=== PATIENT | female | born 1960 | race Caucasian/White ===

== ENCOUNTER 2018-10-23 14:50 | Inpatient (IN) | payer OTHER ==
[2018-10-23] MEDS ORDERED: NS 1,000 ML IV ONE ×2 (15:09→16:09)
[2018-10-23] MEDS ORDERED: KETOROLAC 30 MG/1 ML SDV IVP ONE (15:33)
--- NOTE | 2018-10-23 16:14 | EDPHY ---
H & P Stated Complaint: garcia, dizzy, balance issues Time Seen by Provider: 10/23/18 15:56 HPI/ROS: CHIEF COMPLAINT: Unsteady gait, listing to right, vomiting HISTORY OF PRESENT ILLNESS: 58-year-old female with multiple sclerosis presents with an unsteady gait and vomiting. This morning she awoke and while she was sitting in bed, she fell onto the bed to the right. She crawled to the bathroom and urinated. She then crawled back to bed and went back to sleep. She awoke at 1030 and continued to feel a strong pull to the right and was unable to walk. Associated with repeated vomiting, diffuse myalgias and subjective fever. No cough or URI symptoms. Did not receive a flu vaccination this year. REVIEW OF SYSTEMS: complete 10 point ROS reviewed and is negative except for the noted elements in the HPI - Personal History Current Tetanus/Diphtheria Vaccine: Yes Tetanus Vaccine Date: 2013 - Medical/Surgical History Hx Asthma: No Hx Chronic Respiratory Disease: No Hx Diabetes: No Hx Cardiac Disease: No Hx Renal Disease: No Hx Cirrhosis: No Hx Alcoholism: No Hx HIV/AIDS: No Hx Splenectomy or Spleen Trauma: No Other PMH: MS-1997-Dr Carbone ([place]), depression, - Social History Smoking Status: Light smoker Alcohol Use: Sober Additional Social History: Lives near [place] with brother, who is her caregiver - Physical Exam Exam: General Appearance: Alert, pleasant Eyes: Pupils equal and round, no conjunctival pallor ENT, Mouth: Mucous membranes dry Neck: Normal inspection Respiratory: Lungs are clear to auscultation Cardiovascular: Regular rate and rhythm Gastrointestinal: Abdomen is soft and nontender Neurological: Alert and oriented, able to hold arms and legs up against gravity for 5 sec, gait not assessed Skin: Warm and dry Extremities: Normal inspection Psychiatric: Mood and affect normal Constitutional: Initial Vital Signs Temperature (C) 36.6 C 10/23/18 15:01 Heart Rate 81 10/23/18 15:01 Respiratory Rate 16 10/23/18 15:01 Blood Pressure 149/73 H 10/23/18 15:01 O2 Sat (%) 93 10/23/18 15:01 O2 Delivery Mode Room Air Allergies/Adverse Reactions: No Known Allergies Allergy (Unverified 03/04/16 12:42) Home Medications: Medication Instructions Recorded Cholecalciferol Vit D3 [Vitamin D3 1,000 units PO DAILY 10/23/18 (*)] Citalopram Hydrobromide 40 mg PO DAILY 10/23/18 [Citalopram HBr] Gabapentin [Neurontin 100 MG (*)] 200 mg PO DAILY 10/23/18 Tamsulosin HCl [Flomax 0.4 MG (*)] 0.4 mg PO DAILY PRN 10/23/18 Medical Decision Making - Diagnostics Imaging Results: Imaging Impressions Chest X-Ray 10/23/18 16:09 Impression: 1. Suspect airways disease with superimposed low-grade congestive heart failure. 2. See above report for additional findings. Head CT 10/23/18 16:10 Impression: 1. Elderly brain with atrophy and probable white matter small vessel disease. 2. Nothing acute is identified. Results called and discussed with RENATA ELDRIDGE M.D. on 10/23/2018 at 19:00. Head CTA 10/23/18 16:10 Impression: 1. Negative CT angiography of the neck with no arterial occlusive disease identified. 2. Probable normal variant of the right vertebral artery versus unlikely possibility of a focal dissection; this can be assessed at the patient's pending MRI of the brain. CT Angiography of the Head With Attention to the [place] Reason for examination: Neurologic changes in a 58-year-old female with a history of multiple sclerosis. Technique: A spiral acquisition was performed from the base of the brain to the vertex during rapid intravenous administration of 85 mL of Isovue-370. This contrast volume was utilized for evaluation of the neck and head. Axial images are obtained at 0.6 mm thickness and the examination is reviewed on the workstation in multiple window and level settings. Sagittal and coronal reformats are performed and three-dimensional reformations are performed by the radiologist on the workstation. Dose reduction techniques were utilized. Findings: There is excellent arterial opacification. The great vessels at the base of the brain are normal in appearance. The anterior and middle cerebral arteries appear normal. The [place] is intact with both anterior and posterior communicating arteries identified. The basilar artery as well as posterior cerebral arteries are normal. 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 No hemorrhages are seen and no vascular malformations are identified. No areas of abnormal perfusion are identified and there are no findings to suggest cortical ischemia. Impression: Normal CT angiography of the head with attention to the great vessels of the [place]. Results called and discussed with RENATA ELDRIDGE M.D. on 10/23/2018 at 20:45. Note: All stenoses are calculated using NASCET Criteria. Neck CTA 10/23/18 16:10 Impression: 1. Negative CT angiography of the neck with no arterial occlusive disease identified. 2. Probable normal variant of the right vertebral artery versus unlikely possibility of a focal dissection; this can be assessed at the patient's pending MRI of the brain. CT Angiography of the Head With Attention to the [place] Reason for examination: Neurologic changes in a 58-year-old female with a history of multiple sclerosis. Technique: A spiral acquisition was performed from the base of the brain to the vertex during rapid intravenous administration of 85 mL of Isovue-370. This contrast volume was utilized for evaluation of the neck and head. Axial images are obtained at 0.6 mm thickness and the examination is reviewed on the workstation in multiple window and level settings. Sagittal and coronal reformats are performed and three-dimensional reformations are performed by the radiologist on the workstation. Dose reduction techniques were utilized. Findings: There is excellent arterial opacification. The great vessels at the base of the brain are normal in appearance. The anterior and middle cerebral arteries appear normal. The [place] is intact with both anterior and posterior communicating arteries identified. The basilar artery as well as posterior cerebral arteries are normal. 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 No hemorrhages are seen and no vascular malformations are identified. No areas of abnormal perfusion are identified and there are no findings to suggest cortical ischemia. Impression: Normal CT angiography of the head with attention to the great vessels of the [place]. Results called and discussed with RENATA ELDRIDGE M.D. on 10/23/2018 at 20:45. Note: All stenoses are calculated using NASCET Criteria. Imaging: Discussed imaging studies w/ jewelry sales representative Radiologist ED Course/Re-evaluation: This patient with multiple sclerosis presents with an unsteady gait, vomiting and fever. Clinically, I suspect that she has a febrile illness and in MS exacerbation. However, I cannot completely exclude a CVA, so CT/CTA of the head and neck were obtained and revealed no evidence of CVA. Laboratory studies are unremarkable. Chest x-ray reveals no evidence of pneumonia. Urinalysis is pending. IV normal saline 1 L and Zofran 4 mg IV given. She will need admission for further evaluation of unsteady gait. MRI of the brain with and without contrast ordered. The hospitalist service was consulted for admission. Differential Diagnosis: Differential diagnosis includes does not limited to pneumonia, CVA, urinary tract infection, influenza, electrolyte abnormality, hypoglycemia, vertigo. - Data Points Laboratory Results: Laboratory Results 10/23/18 14:56 10/23/18 14:56 10/23/18 10/23/18 14:56 14:56 WBC 8.82 10^3/uL 10^3/uL (3.80-9.50) RBC 5.68 10^6/uL H 10^6/uL (4.18-5.33) Hgb 16.8 g/dL H g/dL (12.6-16.3) Hct 50.5 % H % (38.0-47.0) MCV 88.9 fL fL (81.5-99.8) MCH 29.6 pg pg (27.9-34.1) MCHC 33.3 g/dL g/dL (32.4-36.7) RDW 12.8 % % (11.5-15.2) Plt Count 276 10^3/uL 10^3/uL (150-400) MPV 8.8 fL fL (8.7-11.7) Neut % (Auto) 84.9 % H % (39.3-74.2) Lymph % (Auto) 11.0 % L % (15.0-45.0) [place] % (Auto) 3.5 % L % (4.5-13.0) Eos % (Auto) 0.0 % L % (0.6-7.6) Baso % (Auto) 0.3 % % (0.3-1.7) Nucleat RBC Rel Count 0.0 % % (0.0-0.2) Absolute Neuts (auto) 7.48 10^3/uL H 10^3/uL (1.70-6.50) Absolute Lymphs (auto) 0.97 10^3/uL L 10^3/uL (1.00-3.00) Absolute Monos (auto) 0.31 10^3/uL 10^3/uL (0.30-0.80) Absolute Eos (auto) 0.00 10^3/uL L 10^3/uL (0.03-0.40) Absolute Basos (auto) 0.03 10^3/uL 10^3/uL (0.02-0.10) Absolute Nucleated RBC 0.00 10^3/uL 10^3/uL (0-0.01) Immature Gran % 0.3 % % (0.0-1.1) Immature Gran # 0.03 10^3/uL 10^3/uL (0.00-0.10) Sodium 138 mEq/L mEq/L (135-145) Potassium 4.3 mEq/L mEq/L (3.5-5.2) Chloride 108 mEq/L mEq/L (97-110) Carbon Dioxide 22 mEq/l mEq/l (22-31) Anion Gap 8 mEq/L mEq/L (6-14) BUN 15 mg/dL mg/dL (7-23) Creatinine 0.6 mg/dL mg/dL (0.6-1.0) Estimated GFR > 60 Glucose 157 mg/dL H mg/dL (70-100) Calcium 9.8 mg/dL mg/dL (8.5-10.4) Microbiology Results: MICROBIOLOGY 10/23/18 15:40 Nasal, Sinus - Swab Respiratory Panel (PCR) - Final No Organism Detected By Pcr Medications Given: Acetaminophen (Tylenol) 650 mg PO Q4HRS PRN PRN Reason: Pain, Mild/Fever, Can Take PO Stop: 04/21/19 18:16 Last Admin: 10/23/18 19:58 Dose: 650 mg Sodium Chloride (Ns) 1,000 mls @ 75 mls/hr IV CONT ROGELIO Stop: 04/21/19 18:29 Last Admin: 10/23/18 21:15 Dose: 1,000 mls Ondansetron HCl (Zofran Odt) 4 mg PO Q4HRS PRN PRN Reason: Nausea/Vomiting, Use 1st Stop: 04/21/19 18:16 Last Admin: 10/23/18 20:04 Dose: 4 mg Discontinued Medications Sodium Chloride (Ns) 1,000 mls @ 0 mls/hr IV ONCE ONE; Wide Open PRN Reason: Protocol Stop: 10/23/18 15:10 Last Admin: 10/23/18 15:14 Dose: 1,000 mls Sodium Chloride (Ns) 1,000 mls @ 0 mls/hr IV ONCE ONE; Wide Open PRN Reason: Protocol Stop: 10/23/18 16:10 Last Admin: 10/23/18 16:54 Dose: 1,000 mls Ketorolac Tromethamine (Toradol) 30 mg IVP EDNOW ONE Stop: 10/23/18 15:34 Last Admin: 10/23/18 15:36 Dose: 30 mg Departure - Departure Disposition: [facility] Acute Clinical Impression: Unsteady gait Vomiting Qualifiers: Vomiting type: unspecified Vomiting Intractability: unspecified Nausea presence : with nausea Qualified Code(s): R11.2 - Nausea with vomiting, unspecified Condition: Fair
[2018-10-23 16:29] LABS: PLATELET COUNT 276 10^3/uL (150-400)
[2018-10-23] MEDS ORDERED: IOPAMIDOL (ISOVUE 370) 100 ML BTL IV ONE (16:42)
[2018-10-23] MEDS ORDERED: ONDANSETRON 4 MG/2 ML VIAL IVP PRN (18:17)
[2018-10-23] MEDS ORDERED: NS 1,000 ML IV SCH (18:30)
--- NOTE | 2018-10-23 19:09 | GHP ---
[f rep st] HISTORY AND PHYSICAL DATE OF ADMISSION: 10/23/2018 CHIEF COMPLAINT: Difficulty walking. HISTORY OF PRESENT ILLNESS: This is a 58-year-old female who has a history of multiple sclerosis. S he has been on biannual Rituxan recently. She woke up today, was sitting up in her bed, and fell ove r to her right side. She normally walks with a cane with some difficulty. However, she felt as thou gh she were unable to walk. She thus crawled to the bathroom and then crawled back to her bed. She notes that throughout the day she had an episode where she felt hot, thought that she might have had a fever. She also notes worsening right leg weakness as well as decreased sensation in her left arm. Her face also feels a little bit numb. She had 1 episode of emesis this afternoon. She is coughin g when I am seeing her, though she attributes this to "water going down the wrong pipe." She has had no sick contacts. She has had no diarrhea. She has no dysuria or new, or a change in her urinary sy mptoms. PAST MEDICAL/SURGICAL HISTORY: 1. Multiple sclerosis. 2. Depression. 3. Kidney stone, status post lithotripsy. MEDICATIONS: Please see medication reconciliation. ALLERGIES: No known drug allergies. SOCIAL HISTORY: She occasionally smokes marijuana. She does not drink any alcohol. FAMILY HISTORY: No multiple sclerosis. Her brother has ulcerative colitis. REVIEW OF SYSTEMS: A 10-point review of systems is conducted and is negative except per HPI. PHYSICAL EXAM: VITAL SIGNS: Blood pressure 135/85, heart rate 85, respiration rate 16, saturating 9 8% on room air, temperature 37. GENERAL: The patient is a pleasant female who is resting comfortabl y. No acute distress. HEENT: Shows her to be normocephalic, atraumatic. CARDIOVASCULAR: Shows re gular rate and rhythm. No murmurs, rubs, or gallops. PULMONARY: Shows lungs clear to auscultation bilaterally. ABDOMEN: Soft, nontender, nondistended. SKIN: Shows no rash. : No Carbone. NEUROL OGIC: Shows her to be alert and oriented x3. Her left pupil is slightly larger than the right pupil , it is about 4 mm, right is 3 mm. They are both reactive. Otherwise, cranial nerves are intact. H er motor is 5/5 in her upper extremities. She has 3/5 in the right lower extremity, 4/5 in her left lower extremity. Sensation is diminished subjectively to light touch in her left arm. PSYCHIATRIC: Shows normal mood and affect. LABS: Hemoglobin 16.8. Basic metabolic panel is unremarkable. DATA: 1. Discussed with Dr. Lovell. We will admit to med/surg. 2. I personally viewed and interpreted her chest x-ray. This shows possible bronchitis. IMPRESSION AND PLAN: 1. Change in her neurologic status. She does have a history of multiple sclerosis, could attribute changes to progression of her multiple sclerosis or an underlying metabolic derangement like an infec tion. Infectious workup is currently in progress. She is getting a CT non con head and CT angiogram of her head and neck, though I do not suspect a stroke at this point. I have gone ahead and ordered an MRI to further characterize her lesions. We will complete an infectious workup with respiratory PCR, GI pathogen panel, urinalysis. I will consult Neurology as well. 2. Multiple sclerosis: She is due for her Rituxan injection in a couple of months. Neurology will see her while she is here. 3. Difficulty walking: PT/OT has been ordered. 4. Venous thromboembolism risk is moderate. I will give her Lovenox. /[id number]/MODL
[2018-10-23] MEDS: ACETAMINOPHEN 325 MG TAB PO PRN (19:58)
[2018-10-23] MEDS: ONDANSETRON DISINTEGRATING 4 MG TAB PO PRN (20:04)
[2018-10-23] MEDS ORDERED: TAMSULOSIN HCL 0.4 MG CAP PO PRN (23:02)
[2018-10-24] MEDS: ACETAMINOPHEN 325 MG TAB PO PRN (00:52)
[2018-10-24] MEDS: ONDANSETRON DISINTEGRATING 4 MG TAB PO PRN ×2 (00:55→08:58)
[2018-10-24 05:16] LABS: PLATELET COUNT 236 10^3/uL (150-400)
[2018-10-24] MEDS: GABAPENTIN 100 MG CAP PO SCH ×2 (08:57→22:01)
[2018-10-24] MEDS: ENOXAPARIN 40 MG/0.4 ML SYR SC SCH (08:57)
[2018-10-24] MEDS: CHOLECALCIFEROL VIT D3 1,000 UNITS TAB PO SCH (08:57)
[2018-10-24] MEDS: CITALOPRAM 20 MG TAB PO SCH (08:58)
--- NOTE | 2018-10-24 10:39 | HOSPPROG ---
Hospitalist Progress Note Assessment/Plan: Alesha is a 58-year-old female who has a history of multiple sclerosis who is on biannual Rituxan. When she woke and was sitting in her bed, she fell over to her r side. Uses a cane to ambulate. She felt she couldn't walk. Also, felt she may of had a fever. First encounter, chart reviewed. *neurologic changes -reviewed her CT imaging, nothing acute seen -MRI pending -evaluation of any infectious etiology - Resp PCR is negative, will check a ua *MS -on Rituxan *weakness -PT and OT -she lives w her brother, Trip, who is very supportive of her *plan: will await MRI imaging. See how well she does with PT and OT. Subjective: Alesha has c/o pain to her right cheek area. Objective: Vital Signs Temp Pulse Resp BP Pulse Ox 36.9 C 77 91 H 105/54 L 90 L 10/24/18 08:47 10/24/18 08:47 10/24/18 08:47 10/24/18 08:47 10/24/18 04:58 Laboratory Results 10/24/18 04:52 10/24/18 04:37 10/23/18 10/24/18 10/25/18 04:59 05:59 05:59 Intake Total 643 Output Total Balance 643 - Physical Exam Constitutional: no apparent distress, appears nourished, not in pain Eyes: PERRL Ears, Nose, Mouth, Throat: hearing normal Cardiovascular: regular rate and rhythym Respiratory: no respiratory distress Gastrointestinal: normoactive bowel sounds Skin: warm Musculoskeletal: generalized weakness Neurologic: AAOx3, sensation intact bilaterally, other (left foot slightly weaker w pull up), No facial droop Psychiatric: interacting appropriately ICD10 Worksheet Patient Problems: Problems Problem Status Onset Unsteady gait Acute Vomiting Acute
[2018-10-24] MEDS ORDERED: IBUPROFEN 200 MG TAB PO PRN (11:46)
[2018-10-24] MEDS ORDERED: GADOBUTROL 10 ML VIAL IVP ONE (12:07)
--- NOTE | 2018-10-24 13:17 | NEUROPROG ---
Assessment: [id number] - Neurology Consult: - CC: Dr. Cottrell (Hospitalist) consulted neurology for difficulty walking. Results placed in EMR for his review. - HPI: 10/24/18: Pt with multiple sclerosis on rituxan bi-annually presented to [facility] ER on 10/23/18 complaining of worsening right leg weakness and decreased sensation in left arm. She walks with a cane at baseline from multiple sclerosis but feels her walking is worse than her baseline. She felt she may have had a fever on 10/23/[address] and CTA head/neck were unremarkable in ER ( CTA neck did show possible vert dissection but the rads report felt a benign variant was more likely). Pt admitted. I initially saw on 10/24/18. Neurologic exam showed increased tone in legs and possible minimal weakness in both legs (pt had a hard time giving full effort). Plan is to obtain brain MRI wwo and UA. If brain MRI wwo shows active demyelinating lesions then recommend pt get IV Solumederol 1,000 mg qd x 3 days. - PMHx: multiple sclerosis, depression, renal stones - Home Meds: - SHx: no alcohol FHx: ulcerative colitis - ROS: Pt denied acute fever, total vision loss, active severe chest pain, respiratory failure, total body severe rash, total bowel/bladder incontinence, psychosis, active seizures, or active bleeding - O: VS reviewed General: Alert Eyes: Fundoscopic exam not able to visualize optic disks CV: Heart RRR, no murmur, no carotid bruit Lungs: Clear to auscultation bilaterally, no rhonchi or rales Neuro: - Mental: . Oriented x person/place/date . concentration appears normal . speech fluency/comprehension normal . memory appears normal . fund of knowledge appear intact - Cranial Nerves: . II: PERRL, VFFTC . III/IV/: EOMI, no nystagmus, normal smooth pursuits, no Ptosis . V: facial sensation intact to LT . VII: face symmetric to eye closure and smile . VIII: hearing intact to conversation . IX/X: uvula raises symmetrically . XI: SCM 5/5 B/L strength . XII: tongue protrudes midline w/nl strength - Motor: . Tone: increased in legs (unclear if pt was trying to relax her legs or not ) . Strength: no pronator drift, strength 5/5 throughout but possible slight weakness in both legs (pt had problems giving full effort) - Reflexes: B/L bic 2/4 - Sensory: all 4 extremity intact to light touch - Coord: ARPAN wnl - Gait: deferred - Labs: 10/23/18- Chem Gluc 157H 10/24/18- CBC CBC wnl - Rads: 10/23/18- Head CT wo: no acute changes noted (I personally visualized the images on 10/24/18) - 10/23/18- Head/neck CTA: Negative CT angiography of the neck with no arterial occlusive disease identified. Probable normal variant of the right vertebral artery versus unlikely possibility of a focal dissection; this can be assessed at the patient's pending MRI of the brain. Normal CT angiography of the head with attention to the great vessels of the [place] - Assessment: 1. Multiple Sclerosis - 2. Sense of generalized weakness concerning for MS flair or pseudoexacerbation from underlying infection - Plan: - Brain MRI wwo (if active demyelinating lesions noted then recommend IV Solumederol 1,000 mg qd x 3 days) - Labs: UA (pending) - PT/OT to determine any rehab needs - F/U with her neurology provider at [place] after hospital discharge Objective: Vital Signs Temp Pulse Resp BP Pulse Ox 37.0 C 78 14 116/69 93 10/24/18 11:57 10/24/18 11:57 10/24/18 11:57 10/24/18 11:57 10/24/18 11:57 Laboratory Results 10/24/18 04:52 10/24/18 04:37 10/23/18 10/24/18 10/25/18 04:59 05:59 05:59 Intake Total 1043 Output Total 100 Balance 943 Allergies/Adverse Reactions: No Known Allergies Allergy (Unverified 03/04/16 12:42)
[2018-10-24] MEDS ORDERED: ASPIRIN 325 MG TAB PO ONE (15:25)
--- NOTE | 2018-10-24 16:50 | PDMN ---
Medical Necessity [place] [facility] [place], 2 days: 58 yo presents w/ change in neuro status - fall, inability to walk - in setting of MS on Rituxan. Initially OBS for workup but neurology consulted, brain MRI ordered, reveals stroke (distal r vertebral artery thrombosis, associated infarcts involving r cerebellum). Change to IP status 10/24/18@1611 per [employer] order.
--- NOTE | 2018-10-24 17:14 | NEUROPROG ---
Assessment: [id number] - Neurology Consult: - CC: Dr. Cottrell (Hospitalist) consulted neurology for difficulty walking. Results placed in EMR for his review. - HPI: 10/24/18: Pt with multiple sclerosis on rituxan bi-annually presented to [facility] ER on 10/23/18 complaining of worsening right leg weakness and decreased sensation in left arm. She walks with a cane at baseline from multiple sclerosis but feels her walking is worse than her baseline. She felt she may have had a fever on 10/23/[address] and CTA head/neck were unremarkable in ER ( CTA neck did show possible vert dissection but the rads report felt a benign variant was more likely). Pt admitted. I initially saw on 10/24/18. Neurologic exam showed increased tone in legs and possible minimal weakness in both legs (pt had a hard time giving full effort). Brain MRI wwo showed superimposed on the patient's MS is acute distal right vertebral artery thrombosis and associated small infarcts involving the right inferior cerebellum , right lateral medulla and right frontal parietal cortex. Therefore, it appears an acute stroke possibly from a proximal source has caused embolic shower to right vert (thrombus) and to the anterior right sided circulation suggesting possible cardiac source. Recommend beginning aspirin 325 mg qd, TTE , telemetry, and considering outpatient prolonged cardiac monitoring with [facility] if no afib found. - PMHx: multiple sclerosis, depression, renal stones - SHx: no alcohol FHx: ulcerative colitis - ROS: Pt denied acute fever, total vision loss, active severe chest pain, respiratory failure, total body severe rash, total bowel/bladder incontinence, psychosis, active seizures, or active bleeding - Labs: 10/23/18- Chem Gluc 157H 10/24/18- CBC CBC wnl - Rads: 10/23/18- Head CT wo: no acute changes noted - 10/23/18- Head/neck CTA: Negative CT angiography of the neck with no arterial occlusive disease identified. Probable normal variant of the right vertebral artery versus unlikely possibility of a focal dissection; this can be assessed at the patient's pending MRI of the brain. Normal CT angiography of the head with attention to the great vessels of the [place] - 10/24/18- Brain MRI wwo: Superimposed on the patient's MS is acute distal right vertebral artery thrombosis and associated small infarctions involving the right inferior cerebellum, right lateral medulla and right frontal parietal cortex. This constellation suggests that the patient may have had a shower of emboli involving both the right vertebral artery and right carotid system. On the CTA earlier, there is retrograde filling of the small distal right vertebral artery and relatively decreased contrast enhancement of arteries in the right inferior cerebellum. - Assessment: 1. Multiple Sclerosis: no active demyelination noted on brain MRI - 2. Right cerebellum and ceberal small strokes noted on 10/24/18 brain MRI: Brain MRI wwo showed superimposed on the patient's MS is acute distal right vertebral artery thrombosis and associated small infarcts involving the right inferior cerebellum, right lateral medulla and right frontal parietal cortex. Therefore , it appears an acute stroke possibly from a proximal source has caused embolic shower to right vert (thrombus) and to the anterior right sided circulation suggesting possible cardiac source. Recommend beginning aspirin 325 mg qd, TTE , telemetry, and considering outpatient prolonged cardiac monitoring with [facility] if no afib found. - Plan: - Begin aspirin 325 mg qd - TTE, telemetry (consider outpatient prolonged cardiac monitoring for paroxysmal afib if no stroke source found) - Labs: H1AC, Lipid - Blood pressure < 220/120 x 48 hours then < 140/90 - H1AC < 7.0 - LDL < 70, recommend statin if above that level - PT/OT to determine any rehab needs - F/U with her neurology provider at [facility] after hospital discharge Objective: Vital Signs Temp Pulse Resp BP Pulse Ox 36.8 C 74 14 118/60 91 L 10/24/18 15:30 10/24/18 15:30 10/24/18 15:30 10/24/18 15:30 10/24/18 15:30 Allergies/Adverse Reactions: No Known Allergies Allergy (Unverified 03/04/16 12:42)
[2018-10-24] MEDS: IBUPROFEN 200 MG TAB PO PRN (20:11)
[2018-10-25] MEDS ORDERED: GABAPENTIN 100 MG CAP PO PRN (09:14)
[2018-10-25] MEDS: CHOLECALCIFEROL VIT D3 1,000 UNITS TAB PO SCH (09:15)
[2018-10-25] MEDS: ENOXAPARIN 40 MG/0.4 ML SYR SC SCH (09:17)
[2018-10-25] MEDS: ASPIRIN 325 MG TAB PO SCH (09:17)
[2018-10-25] MEDS: GABAPENTIN 100 MG CAP PO SCH ×2 (09:21→09:23)
[2018-10-25] MEDS: CITALOPRAM 20 MG TAB PO SCH (09:22)
--- NOTE | 2018-10-25 10:26 | NEUROPROG ---
Assessment: 1. Multiple sclerosis 2. Cryptogenic Stroke I reviewed entire hospital data and Dr. Dominguez's consultation note. Agree with Dr. Dominguez. This patient has had an acute cerebral infarction the setting of longstanding multiple sclerosis. She was not taking any anti-platelet therapy when this occurred. CTA head and neck was negative. No atrial fibrillation on telemetry per my knowledge. No history of palpitations. She was a heavy smoker. Agree with aspirin 325 mg daily ,coated. She will need to start statin therapy as LDL is above 70. Disposition per therapies. Outpatient Cardiology consultation at [facility] for prolonged ECG monitoring/echocardiograms for evaluation of cryptogenic stroke . She will follow-up with her neurologist in terms of her multiple sclerosis as well. No further recommendations. We will continue to follow as needed. Please do not hesitate to call if there are any questions or changes in neurologic status with this patient. Subjective: No new symptoms Objective: Vital Signs Temp Pulse Resp BP Pulse Ox 37.0 C 73 13 130/81 H 96 10/25/18 07:41 10/25/18 07:41 10/25/18 07:41 10/25/18 07:41 10/25/18 07:41 10/24/18 10/25/18 10/26/18 05:59 05:59 05:59 Intake Total 500 Output Total 1150 200 Balance -650 -200 Awake alert No aphasia Dysmetria with right [id number]; compared to left 35 total minutes floor time; over 50% counseling and coordination of care. Allergies/Adverse Reactions: No Known Allergies Allergy (Unverified 03/04/16 12:42)
[2018-10-25] MEDS: ATORVASTATIN CALCIUM 10 MG TAB PO SCH (10:40)
--- NOTE | 2018-10-25 11:11 | ECHO ---
[email or web address] [address] [address] Main: [phone] Echocardiography Examination Transthoracic Name: JANUSZ FIGUEROA MR#: [id number] Study Date: 10/25/2018 Study Time: 08:21 AM Date of : 1960 Age: 58 year(s) Height: 175.3 cm (69 in.) Weight: 61.24 kg (135 lb.) BSA: 1.75 m2 Gender: Female Examination: Echo with Agitated Saline Contrast: Image Quality: Adequate Rhythm: Heart Rate: BP: 130 mmHg/81 mmHg Indication: stroke Procedure Staff Referring Physician: Patient Consumer Marketer: Heather Morin [facility] Reading Physician: Justin Ross MD Requesting Provider: Ordering Physician: Evelin Montilla Indication: stroke Measurements Chambers AV/MV Label Value Normal Value Label Value Normal Value IVSd, 2D 1 cm (0.6cm - 1.1cm) AV Opening, MM 1.4 cm LVDd, 2D 3.4 cm (3.9cm - 5.3cm) AV PGmax 3 mmHg LVDs, 2D 2.4 cm (2.1cm - 4cm) AV PGmean 2 mmHg LVEF, 2D 56 % (54% - 74%) AV Vmax, Curve 0.92 m/s LVEF, BP 57 % (55% - 70%) KIMO D (continuity eq. 3.3 cm2 LVEF, MOD2 53 % (55% - 70%) VTI) LVEF, MOD4 60 % (55% - 70%) MV A Vmax 0.57 m/s LVOT PGmean 1 mmHg MV DT 169 ms LVOT Vmean 0.56 m/s MV E' lateral 0.12 m/s LVOTd 2 cm (1.8cm - 2cm) MV E' mean 0.11 m/s LVPWd, 2D 1 cm MV E' septal 0.1 m/s RVDd, 2D 2.8 cm (1.9cm - 3.8cm) MV E Vmax 0.68 m/s LA Area, A2C 22.6 cm2 (0cm2 - 20cm2) MV E/A 1.19 LA Volume, A2C 72 ml (22ml - 52ml) MV E/E' lateral 5.9 LADs, 2D 3.1 cm (2.7cm - 3.8cm) MV E/E' mean 6.18 Additional Vessels MV E/E' septal 7.1 (0.5 - 1.7) Label Value Normal Value MV PHT 0.06 s AoAsc 2.9 cm MV PHT 58 ms AoRoot, 2D 2.8 cm (1.4cm - 2.6cm) MVA PHT 3.8 cm2 Patient: JANUSZ FIGUEROA Study Date: 10/25/2018 Page 1 of 3 08:21 AM IVC 1.8 cm (1.2cm - 2.3cm) TV/PV Label Value Normal Value TR Pmax 20 mmHg TR Vmax 2.24 m/s PV PGmax 2 mmHg PV Vmax, Caliper 0.75 m/s (0.6m/s - 0.9m/s) Conclusions A cardiac source of embolus was not identified on the basis of this study. If a cardiac source of embolus is strongly suspected consider GALE, which has better sensitivity and specificity for this particular clinical entity (CVA). Left Ventricle: Left ventricle is normal in size. Normal global systolic left ventricular function. There is no regional wall motion abnormalities. Right Ventricle: Normal size right ventricle. Right ventricular systolic function is normal. Left Atrium: The left atrium is mildly dilated. IAS: An agitated saline study was performed and was negative for intracardiac shunting. Mitral Valve: Mild mitral regurgitation. No mitral valve stenosis. Aortic Valve: Aortic leaflets are structurally normal. There is no aortic stenosis. Aortic leaflets exhibit mild calcification. Findings Left Ventricle: Left ventricle is normal in size. Normal global systolic left ventricular function. The ejection fraction, measured by Simpsons method, is 57 %. Left ventricle wall thickness is normal. There is no regional wall motion abnormalities. Left ventricular diastolic function parameters are normal. IVS: The septum is intact. Right Ventricle: Normal size right ventricle. Right ventricular wall thickness is normal. Right ventricular systolic function is normal. Left Atrium: The left atrium is mildly dilated. IAS: An agitated saline study was performed and was negative for intracardiac shunting. Right Atrium: The right atrium is normal in size. Mitral Valve: Mitral valve appears structurally normal. Mild mitral regurgitation. No mitral valve stenosis. Patient: JANUSZ FIGUEROA Study Date: 10/25/2018 Page 2 of 3 08:21 AM Aortic Valve: Aortic leaflets are structurally normal. No aortic valve regurgitation. There is no aortic stenosis. Aortic leaflets exhibit mild calcification. Tricuspid Valve: Tricuspid valve leaflets are structurally normal. Mild tricuspid regurgitation. No tricuspid valve stenosis. Pulmonary artery pressure normal. Pulmonic Valve: Pulmonic leaflets are structurally normal. No pulmonic valve regurgitation is evident. Aorta: The aorta is normal. The aortic root size in 2D measures 2.8 cm. The ascending aorta measures 2.9 cm. Aorta Measurements AoRoot, 2D is 2.8 cm. Pulmonary Artery: The pulmonary artery morphology appears normal. IVC: The inferior vena cava is normal in size. The inferior vena cava is normal in size and course. Pericardium: No pericardial effusion. No pleural effusion present. Exam Details Procedure Ordered: Echo with Agitated Saline Procedure Status: Routine study Image Quality: Adequate Facility Location: Cardiac Echo 1 (No Signature Object) Patient: JANUSZ FIGUEROA Study Date: 10/25/2018 Page 3 of 3 08:21 AM [id number]
--- NOTE | 2018-10-25 14:38 | HOSPPROG ---
Hospitalist Progress Note Assessment/Plan: Hospitalist Progress Note Assessment/Plan: Alesha is a 58-year-old female who has a history of multiple sclerosis who is on biannual Rituxan. When she woke and was sitting in her bed, she fell over to her r side. Uses a cane to ambulate. She felt she couldn't walk. Also, felt she may of had a fever. First encounter, chart reviewed. * Cryptogenic Stroke -MRI distal r vertebral artery thrombosis, associated infarcts involving r cerebellum -CTA head and neck negative - ECHO stable, needs Halter monitor - ASA 325 daily *MS -on Rituxan *weakness -PT and OT -she lives w her brother, Trip, who is very supportive of her *Elevated LDL -start Lipitor 10mg *plan: await inpt rehab eval needs rehab at time of DC D/W CM Subjective: Up in chair. Feeling much better. No pain. Still some weakness. Objective: Vital Signs Temp Pulse Resp BP Pulse Ox 36.8 C 76 17 113/79 90 L 10/25/18 11:33 10/25/18 11:33 10/25/18 11:33 10/25/18 11:33 10/25/18 11:33 10/24/18 10/25/18 10/26/18 05:59 05:59 05:59 Intake Total 500 Output Total 1150 200 Balance -650 -200 - Physical Exam Constitutional: appears nourished, not in pain, chronically ill appearing Eyes: PERRL, anicteric sclera, EOMI Ears, Nose, Mouth, Throat: moist mucous membranes, hearing normal, ears appear normal Cardiovascular: regular rate and rhythym, No JVD, No edema Respiratory: no respiratory distress, no rales or rhonchi, reduced air movement Gastrointestinal: normoactive bowel sounds, No tenderness, No ascites Skin: warm, normal color, No mottled Musculoskeletal: normal joint ROM, no joint effusions, generalized weakness Neurologic: AAOx3 Psychiatric: not anxious, not encephalopathic, thought process linear ICD10 Worksheet Patient Problems: Problems Problem Status Onset Unsteady gait Acute Vomiting Acute
--- NOTE | 2018-10-25 15:02 | ASMTCMCOM ---
CM Note CM Note Notes: The following CM note was not saved yesterday in the [employer] program by Karissa Gonzalez: Patient chart reviewed for discharge planning purposes. 58 year old female with known diagnosis of MS presented to the ED with complaints of increasing weakness and fever. Normally lives independently with her brother. Uses cane. CM to follow for needs. Plan: TBD Date Signed: 10/25/2018 03:02 PM Electronically Signed By:NY Juárez
--- NOTE | 2018-10-25 16:03 | ASMTCMCOM ---
CM Note CM Note Notes: OT/PT rec inpatient rehab, [facility] rec [facility]. Referral sent to [place] in [employer] to approve [facility] inpatient rehab. Spoke with pt whose first choice for d/c is the [facility] inpatient rehab. CM to follow. D/c plan: TBD depending on [place] Date Signed: 10/25/2018 04:03 PM Electronically Signed By:NY Juárez
[2018-10-26] MEDS: IBUPROFEN 200 MG TAB PO PRN ×3 (05:12→20:20)
[2018-10-26] MEDS: ENOXAPARIN 40 MG/0.4 ML SYR SC SCH (08:42)
[2018-10-26] MEDS: CHOLECALCIFEROL VIT D3 1,000 UNITS TAB PO SCH (08:42)
[2018-10-26] MEDS: CITALOPRAM 20 MG TAB PO SCH (08:42)
[2018-10-26] MEDS: GABAPENTIN 100 MG CAP PO SCH (08:42)
[2018-10-26] MEDS: ASPIRIN 325 MG TAB PO SCH (08:42)
[2018-10-26] MEDS: ATORVASTATIN CALCIUM 10 MG TAB PO SCH (08:42)
[2018-10-26] MEDS: ACETAMINOPHEN 325 MG TAB PO PRN (08:48)
--- NOTE | 2018-10-26 12:45 | HOSPPROG ---
Hospitalist Progress Note Assessment/Plan: Hospitalist Progress Note Assessment/Plan: Alesha is a 58-year-old female who has a history of multiple sclerosis who is on biannual Rituxan. When she woke and was sitting in her bed, she fell over to her r side. Uses a cane to ambulate. She felt she couldn't walk. Also, felt she may of had a fever. * Cryptogenic Stroke -MRI distal r vertebral artery thrombosis, associated infarcts involving r cerebellum -CTA head and neck negative - ECHO stable, needs Halter monitor - ASA 325 daily *MS -on Rituxan *weakness -PT and OT -she lives w her brother, Trip, who is very supportive of her *Elevated LDL -start Lipitor 10mg *plan: inpt rehab denied awaiting snf placement D/W CM Subjective: Feeling ok. Had a headache last night. Didn't sleep well. Unsafe to go home. Objective: Vital Signs Temp Pulse Resp BP Pulse Ox 36.6 C 75 93 H 119/68 16 L 10/26/18 11:32 10/26/18 11:32 10/26/18 11:32 10/26/18 11:32 10/26/18 11:32 10/25/18 10/26/18 10/27/18 05:59 05:59 05:59 Intake Total 500 500 Output Total 1150 1350 550 Balance -650 -850 -550 - Physical Exam Constitutional: appears nourished, chronically ill appearing Eyes: PERRL, anicteric sclera Ears, Nose, Mouth, Throat: moist mucous membranes, hearing normal Cardiovascular: No JVD, No edema Respiratory: no respiratory distress, reduced air movement Gastrointestinal: No tenderness, No ascites Skin: warm, normal color Musculoskeletal: no joint effusions, generalized weakness Neurologic: AAOx3 Psychiatric: not anxious, not encephalopathic, thought process linear ICD10 Worksheet Patient Problems: Problems Problem Status Onset Vomiting Acute Unsteady gait Acute
[2018-10-27] MEDS: IBUPROFEN 200 MG TAB PO PRN ×4 (03:14→22:00)
--- NOTE | 2018-10-27 08:48 | HOSPPROG ---
Hospitalist Progress Note Assessment/Plan: Alesha is a 58-year-old female who has a history of multiple sclerosis who is on biannual Rituxan. When she woke and was sitting in her bed, she fell over to her r side. Uses a cane to ambulate. She felt she couldn't walk. Also, felt she may of had a fever. * Cryptogenic Stroke -MRI distal r vertebral artery thrombosis, associated infarcts involving r cerebellum -CTA head and neck negative - ECHO stable, needs Holter monitor - ASA 325 daily -reviewed telemetry and she has been in sinus *MS -on Rituxan *weakness -PT and OT -she lives w her brother, Trip, who is very supportive of her *Elevated LDL -start Lipitor 10mg *plan: Outpatient Cardiology consultation at [place] for prolonged ECG monitoring /echocardiograms for evaluation of cryptogenic stroke . She will need a follow-up with her neurologist in regards to her multiple sclerosis. message left for Balta POWELL, Dr Hoffman, to discuss plan of care Subjective: Alesha is very concerned about how weak she is. Objective: Vital Signs Temp Pulse Resp BP Pulse Ox 37.0 C 72 14 118/69 92 10/27/18 07:43 10/27/18 07:43 10/27/18 07:43 10/27/18 07:43 10/27/18 07:43 10/26/18 10/27/18 10/28/18 05:59 05:59 05:59 Intake Total 500 400 Output Total 1350 1450 200 Balance -850 -1050 -200 - Physical Exam Constitutional: no apparent distress, appears nourished, not in pain Eyes: PERRL Ears, Nose, Mouth, Throat: hearing normal Cardiovascular: regular rate and rhythym Skin: warm Musculoskeletal: generalized weakness Neurologic: AAOx3 Psychiatric: interacting appropriately ICD10 Worksheet Patient Problems: Problems Problem Status Onset Unsteady gait Acute Vomiting Acute
--- NOTE | 2018-10-27 08:55 | CPEKG ---
Test Reason : OPEN Blood Pressure : / mmHG Vent. Rate : 079 BPM Atrial Rate : 079 BPM P-R Int : 180 ms QRS Dur : 088 ms QT Int : 472 ms P-R-T Axes : 073 058 235 degrees QTc Int : 542 ms Sinus rhythm Left atrial enlargement Anteroseptal infarct, age indeterminate QTc is falsely interpreted to 542 ms in this study Confirmed by Osmin Hawkins ([id number]) on 10/27/2018 8:54:55 AM Referred By: Earl Cottrell Confirmed By:Osmin Hawkins
[2018-10-27] MEDS: GABAPENTIN 100 MG CAP PO SCH (09:51)
[2018-10-27] MEDS: ENOXAPARIN 40 MG/0.4 ML SYR SC SCH (09:51)
[2018-10-27] MEDS: ATORVASTATIN CALCIUM 10 MG TAB PO SCH (09:51)
[2018-10-27] MEDS: CHOLECALCIFEROL VIT D3 1,000 UNITS TAB PO SCH (09:51)
[2018-10-27] MEDS: CITALOPRAM 20 MG TAB PO SCH (09:51)
[2018-10-27] MEDS: ASPIRIN 325 MG TAB PO SCH (09:52)
[2018-10-28] MEDS: IBUPROFEN 200 MG TAB PO PRN (05:27)
[2018-10-28 08:28] VITALS: BP 126/61
--- NOTE | 2018-10-28 08:46 | HOSPPROG ---
Hospitalist Progress Note Assessment/Plan: Alesha is a 58-year-old female who has a history of multiple sclerosis who is on biannual Rituxan. When she woke and was sitting in her bed, she fell over to her r side. Uses a cane to ambulate. She felt she couldn't walk. Also, felt she may of had a fever. * Cryptogenic Stroke -MRI distal r vertebral artery thrombosis, associated infarcts involving r cerebellum -CTA head and neck negative - ECHO stable, needs Holter monitor - ASA 325 daily -reviewed telemetry and she has been in sinus *MS -on Rituxan *weakness -PT and OT -she lives w her brother, Trip, who is very supportive of her *Elevated LDL -start Lipitor 10mg *plan: Outpatient Cardiology consultation at [place] for prolonged ECG monitoring /echocardiograms for evaluation of cryptogenic stroke . She will need a follow-up with her neurologist in regards to her multiple sclerosis. message left for Balta POWELL, Dr Hoffman, to discuss plan of care Subjective: Alesha is very motivated to do rehab. No complaints Objective: Vital Signs Temp Pulse Resp BP Pulse Ox 37.0 C 71 16 126/61 H 89 L 10/28/18 08:23 10/28/18 08:23 10/28/18 08:23 10/28/18 08:23 10/28/18 08:23 10/27/18 10/28/18 10/29/18 05:59 05:59 05:59 Intake Total 400 Output Total 1450 200 Balance -1050 -200 - Physical Exam Constitutional: no apparent distress, appears nourished, not in pain Eyes: PERRL Ears, Nose, Mouth, Throat: hearing normal Respiratory: no respiratory distress Skin: warm Musculoskeletal: generalized weakness Neurologic: AAOx3 Psychiatric: interacting appropriately ICD10 Worksheet Patient Problems: Problems Problem Status Onset Unsteady gait Acute Vomiting Acute
--- NOTE | 2018-10-28 08:50 | PDIAF ---
- Diagnosis Diagnosis: crypotegenic stroke, MS Code Status: Full Code - Medication Management Discharge Medications: electronically signed and located in the Home Medication List. - Orders Services needed: Physical Therapy, Occupational Therapy, Speech Language Pathologist Oxygen: 1 liter prn Diet Recommendation: no restrictions on diet Diet Texture: Regular Texture Diet, Thin Liquids, Meds Whole w/Liquids Additional Instructions: Outpatient Cardiology consultation at [place] for prolonged ECG monitoring/ echocardiograms for evaluation of cryptogenic stroke . She will need a follow-up with her neurologist in regards to her multiple sclerosis. message left for Balta POWELL, Dr [place], . - Follow Up Care Current Providers and Referrals: NONE *PRIMARY CARE P,. [Primary Care Provider] - As per Instructions
[2018-10-28] MEDS: ENOXAPARIN 40 MG/0.4 ML SYR SC SCH (09:15)
[2018-10-28] MEDS: GABAPENTIN 100 MG CAP PO SCH (09:16)
[2018-10-28] MEDS: ASPIRIN 325 MG TAB PO SCH (09:16)
[2018-10-28] MEDS: CITALOPRAM 20 MG TAB PO SCH (09:16)
[2018-10-28] MEDS: CHOLECALCIFEROL VIT D3 1,000 UNITS TAB PO SCH (09:16)
[2018-10-28] MEDS: ATORVASTATIN CALCIUM 10 MG TAB PO SCH (09:17)
--- NOTE | 2018-10-28 09:23 | ASMTLACE ---
LACE Length of stay for Answers: 4-6 days current admission Acuity / Level of Answers: Yes Care: Did the patient have an inpatient admission? Comorbidities - select Answers: Other Notes: MS all that apply # of Emergency department Answers: 1-2 visits in the last 6 months Score: 9 Date Signed: 10/28/2018 09:23 AM Electronically Signed By:JOAO Petit
--- NOTE | 2018-10-28 09:47 | ASMTDCNOTE ---
Case Management Discharge Discharge Order Complete? Answers: Yes Patient to Obtain Answers: Other Notes: [facility] Medications Transport will Pick (Date 10/28/2018 12:00 PM & Time) EMTALA Complete Answers: No Case Management Transport Answers: No Form Complete Faxed Final Orders Answers: Yes Agency/Facility Transfer Answers: Yes Report Printed & Faxed to Receiving Agency Family Notified Answers: No Discharge Comments Notes: Pts case discussed w/ Evelin Montilla NP. Evelin had to complete doc to doc. [facility] had initially denied both inpatient rehab and snf. [employer] and [employer] experienced down time yesterday. CM had to manually fax written therapy notes to [facility]. [facility] ultimately approved pt for SNF. Referral sent to [facility], a [facility] approved facility. [facility] is able to accept. DC orders sent. RADHA Solorio will call to give report. ARTIE spoke to a [facility] rep (P# [phone]) and notified her of the d/c to [facility]. CM available for changes. Plan: [facility] SNF Date Signed: 10/28/2018 09:47 AM Electronically Signed By:JOAO Petit
--- NOTE | 2018-10-28 09:48 | ASDISCHSUM ---
Discharge Information Plan Status:SNF Medically Cleared to Leave:10/28/2018 Discharge Date:10/28/2018 CM D/C Disposition: ADT D/C Disposition:Custodial Facility Projected Discharge Date:10/28/2018 11:00 AM Transportation at D/C: Discharge Delay Reason: Follow-Up Date:10/28/2018 11:00 AM Discharge Slot: Final Diagnosis: Placement Information Referral Type:*[facility]ci/SNF Referral ID:[id number] Provider Name:Olivia Lazaro [facility] Address 1:[address] Phone Number: Address 2: Fax Number: [facility]:[place] Selection Factors: State:[place] Referral Type:[facility] Referral ID:[id number] Provider Name: Address 1: Phone Number: Address 2: Fax Number: City: Selection Factors: State: Referral Type:*Home Health Care Services Referral ID:[id number] Provider Name: Address 1: Phone Number: Address 2: Fax Number: City: Selection Factors: State: Patient Contact Information Contact Name:SHEILA Relationship: Address:[address] [place] [address] [address] City:[place] Alternate Phone: [facility]/Zip Code:[place] [address] Email: Financial Information Financial Class:HMO and PPO Plans Primary Plan Desc:[facility] Primary Plan Number:[id number] Secondary Plan Desc: Secondary Plan Number: Assessment Information LACE LACE Length of stay for Answers: 4-6 days current admission Acuity / Level of Answers: Yes Care: Did the patient have an inpatient admission? Comorbidities - select Answers: Other Notes: MS all that apply # of Emergency department Answers: 1-2 visits in the last 6 months Score: 9 Date Signed: 10/28/2018 09:23 AM Electronically Signed By:JOAO Petit [facility] CM Progress Note CM Note CM Note Notes: The following CM note was not saved yesterday in the [employer] program by Karissa Gonzalez: Patient chart reviewed for discharge planning purposes. 58 year old female with known diagnosis of MS presented to the ED with complaints of increasing weakness and fever. Normally lives independently with her brother. Uses cane. CM to follow for needs. Plan: TBD Date Signed: 10/25/2018 03:02 PM Electronically Signed By:NY Juárez [facility] CM Progress Note CM Note CM Note Notes: OT/PT rec inpatient rehab, [employer] rec [facility]. Referral sent to [place] in [employer] to approve [facility] inpatient rehab. Spoke with pt whose first choice for d/c is the [facility] inpatient rehab. CM to follow. D/c plan: TBD depending on [place] Date Signed: 10/25/2018 04:03 PM Electronically Signed By:NY Juárez Case Management Discharge Plan Note Case Management Discharge Discharge Order Complete? Answers: Yes Patient to Obtain Answers: Other Notes: [facility] Medications Transport will Pick (Date 10/28/2018 12:00 PM & Time) SIMEON Complete Answers: No Case Management Transport Answers: No Form Complete Faxed Final Orders Answers: Yes Agency/Facility Transfer Answers: Yes Report Printed & Faxed to Receiving Agency Family Notified Answers: No Discharge Comments Notes: Pts case discussed w/ Evelin Montilla NP. Evelin had to complete doc to doc. [facility] had initially denied both inpatient rehab and snf. [employer] and [employer] experienced down time yesterday. CM had to manually fax written therapy notes to [facility]. [facility] ultimately approved pt for SNF. Referral sent to [facility], a [facility] approved facility. [facility] is able to accept. DC orders sent. RADHA Solorio will call to give report. CM spoke to a [facility] rep (P# [phone]) and notified her of the d/c to [facility]. CM available for changes. Plan: [facility] SNF Date Signed: 10/28/2018 09:47 AM Electronically Signed By:JOAO Petit Intervention Information Intervention Type:*Incorrect Registration Date of Service:10/24/2018 11:41 AM Patient Type:Inpatient Staff Member:Yakelin Lopez Hours: Discipline: Severity: Comment:
--- NOTE | 2018-10-28 10:49 | GDS ---
[f rep st] DISCHARGE SUMMARY DISCHARGE DIAGNOSES: 1. Cryptogenic stroke. 2. Multiple sclerosis. 3. Weakness. 4. Elevated LDL. Briefly, the patient is a 58-year-old female who has a history of MS who is on biannual Rituxan. She woke up, was sitting on her bed and fell over on her right side. She normally uses a cane to ambulate. She had multiple imaging studies performed that did not show a stroke. Subsequently, a brain MRI was performed, and it showed that superimposed on the patient's MS is an acute distal right vertebral artery thrombosis and associated small infarctions involving the right inferior cerebellum, right lateral medulla, and right frontoparietal cortex. There was concern she had emboli involving both the right vertebral artery and right carotid system. The plan is for her to go to rehabilitation today for strengthening. She will need to get serial echocardiograms as well as a Holter monitor in the outpatient setting. She has been started on statin therapy and aspirin therapy. She will be discharged to rehabilitation today. HOSPITAL COURSE PER PROBLEM: 1. Cryptogenic stroke. Her echo is stable. She is on aspirin therapy. She has been in sinus rhythm. 2. MS, on Rituxan. 3. Weakness. Working with PT and OT. She can get around with a walker but needs some strengthening. 4. Elevated LDL. She has been started on Lipitor. DISCHARGE CONDITION: Stable. Blood pressure is 126/61, O2 sats on room air 89% , respiratory rate is 16, pulse is 71, temperature 37 degrees Celsius. MEDICATIONS AT DISCHARGE: Please see the EMR. DISCHARGE INSTRUCTIONS: It is important she gets close followup with [facility] and gets prolonged ECG monitoring as well as echocardiograms to evaluate for cryptogenic stroke. In addition, she is to follow up with her neurologist in regard to her MS. Greater than 30 minutes discharging and coordinating her care. Copy requested to: Dr. Ezio Dominguez /[id number]/MODL MTDD
== END 2018-10-28 11:51 | DRG 66 ==
LOC: EDUNIT# → INTOOBSV 18:00 → F3N 18:40 → OBSVTOIN 10-24 16:11
PROVIDERS: ADMIT Student in an Organized Health Care Education/Training Program; ATTEND Student in an Organized Health Care Education/Training Program
DX: I63.011 Cerebral infarction due to thrombosis of right vertebral artery (principal); G35 Multiple sclerosis; F17.210 Nicotine dependence, cigarettes, uncomplicated; F32.9 Major depressive disorder, single episode, unspecified; Z87.442 Personal history of urinary calculi; Z23 Encounter for immunization
CPT/HCPCS: 92507-GN; 92523-GN; 92610-GN; 96374; 97116-GP; 97162-GP; 97167-GO; 97530-GO; 97530-GP; 97535-GO; A9585; G0008; G0378; J1650; J1885; J2405; Q9967